=== PATIENT | male | born 1965 ===

== ENCOUNTER 2017-01-02 01:14 | Emergency (ER) | payer SELFPAY ==
[2017-01-02 01:19] VITALS: BP 146/76; PULSE 88; RESP 20; TEMP 98; O2SAT 99
--- NOTE | 2017-01-02 02:09 | ED PDOC ---
HPI: Psych/Substance Abuse Time Seen by Provider: 01/02/17 01:25 Chief Complaint (Nursing): Alcohol Ingestion Chief Complaint (Provider): Alcohol Ingestion ED Caveat: Intoxicated History Per: Patient History/Exam Limitations: no limitations Onset/Duration Of Symptoms: Hrs Current Symptoms Are (Timing): Still Present Modifying Factor(s): Alcohol Severity: Mild Involuntary Hold By: None Additional Complaint(s): 51 y/o male pt presenting to the ED with alcohol intoxication. PT was brought in by EMS for being heavily intoxicated in public. PT admits he has been drinking all day and he denies any past medical problems. Past Medical History Reviewed: Historical Data, Nursing Documentation, Vital Signs Vital Signs: Last Vital Signs Temp 98 F 01/02/17 01:16 Pulse 88 01/02/17 01:16 Resp 20 01/02/17 01:16 BP 146/76 01/02/17 01:16 Pulse Ox 99 01/02/17 01:16 - Medical History PMH: No Chronic Diseases - Surgical History Surgical History: No Surg Hx - Family History Family History: States: Unknown Family Hx - Social History Alcohol: > 2 Drinks/Day - Home Medications Home Medications: Ambulatory Orders Medication Instructions Recorded Polymyxin/Trimethoprim Sulfate 1 drop XX Q6H 10 Days 07/26/14 [Polytrim Ophth Soln] - Allergies Allergies/Adverse Reactions: Allergies Allergy/AdvReac Type Severity Reaction Status Date / Time No Known Allergies Allergy Verified 07/18/14 23:39 Review of Systems ROS Statement: Except As Marked, All Systems Reviewed And Found Negative Cardiovascular: Negative for: Chest Pain Respiratory: Negative for: Shortness of Breath Gastrointestinal: Negative for: Nausea, Vomiting, Diarrhea Genitourinary Male: Negative for: Dysuria Physical Exam - Reviewed Nursing Documentation Reviewed: Yes Vital Signs Reviewed: Yes - Physical Exam Appears: Positive for: Non-toxic, No Acute Distress Head Exam: Positive for: ATRAUMATIC Skin: Positive for: Normal Color, Warm Cardiovascular/Chest: Positive for: Regular Rate, Rhythm. Negative for: Murmur Respiratory: Positive for: Normal Breath Sounds. Negative for: Respiratory Distress Gastrointestinal/Abdominal: Positive for: Soft. Negative for: Tenderness Extremity: Positive for: Normal ROM Neurologic/Psych: Positive for: Alert, Other ((+)Slurred Speech, Unsteady Gaze) . Negative for: Oriented, Motor/Sensory Deficits - ECG O2 Sat by Pulse Oximetry: 99 (RA) Pulse Ox Interpretation: Normal - Progress Re-evaluation Time: 06:02 Condition: Re-examined, Improved Medical Decision Making Medical Decision Making: Time: 158 Initial impression: Alcohol Intoxication Initial plan: --Alcohol Serum --Accucheck 0205: Observe to Clinical Sobriety Scribe Attestation: Documented by Huong Maagña, acting as a scribe for Sarah Valle MD MD Scribe Attestation: All medical record entries made by the Scribe were at my direction and personally dictated by me. I have reviewed the chart and agree that the record accurately reflects my personal performance of the history, physical exam, medical decision making, and the department course for this patient. I have also personally directed, reviewed, and agree with the discharge instructions and disposition. Disposition - Clinical Impression Clinical Impression: Alcohol abuse with uncomplicated intoxication - Patient ED Disposition Is Patient to be Admitted: No Doctor Will See Patient In The: Office Counseled Patient/Family Regarding: Studies Performed, Diagnosis, Need For Followup - Disposition Referrals: [facility] [Outside] Disposition: Routine/Home Disposition Time: 06:02 Condition: GOOD Instructions: Alcohol Intoxication (ED)
== END 2017-01-02 06:27 | disposition home or self-care (01) ==
LOC: H.ER 01:14
DX: F10.120 Alcohol abuse with intoxication, uncomplicated (principal)
CPT/HCPCS: 82948; 99282; G0480